=== PATIENT | male | born 1965 | race American Indian/Alaskan Native ===

== ENCOUNTER 2017-02-02 16:02 | Emergency (ER) | payer MEDICARE ==
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
[2017-02-02 16:26] LABS: BILIRUBIN URINE NEGATIVE (NEGATIVE); BLOOD URINE NEGATIVE /UL (NEGATIVE); COLOR URINE YELLOW (YELLOW); GLUCOSE URINE NEGATIVE (NEGATIVE); KETONE URINE NEGATIVE (NEGATIVE); LEUKOCYTES URINE NEGATIVE /UL (NEGATIVE); NITRITE URINE NEGATIVE (NEGATIVE); PROTEIN URINE 30 mg/dL (NEGATIVE); TURBIDITY URINE CLEAR (CLEAR); UROBILINOGEN URINE NORMAL (NORMAL)
[2017-02-02 16:35] LABS: BASOPHIL # 0.1 K/uL (0.0-0.2); BASOPHIL % 1.7 %; EOSINOPHIL # 0.2 K/uL (0.0-0.5); EOSINOPHIL % 2.7 %; HEMOGLOBIN 14.2 g/dL (12.0-17.0); IMMATURE GRANULOCYTE % 0.3 %; LYMPHOCYTE # 1.7 K/uL (0.8-4.0); LYMPHOCYTE % 29.4 %; MCH 33.6 pg (27.0-34.0); MCHC 33.8 gm/dL (32.0-36.5); MCV 99.3 fl (83.0-98.0); MONOCYTE # 0.5 K/uL (0.0-1.0); MONOCYTE % 9.1 %; MPV 8.7 fl (9.4-12.4); NEUTROPHIL # (ANC) 3.4 K/uL (1.4-9.0); NEUTROPHIL % 56.8 %; NRBC % 0 /100WBC (0-0.00); PLATELET COUNT 459 K/uL (150-450); RBC 4.23 M/uL (4.00-6.00); RDW-CV 13.9 % (11.9-14.6); WBC 5.9 K/uL (4.0-11.0)
[2017-02-02 16:44] LABS: EPITHELIAL URINE 0-2 #/HPF (NEGATIVE); RBC URINE 0-2 #/HPF (NEGATIVE); WBC URINE 0-2 #/HPF (NEGATIVE)
[2017-02-02 16:51] LABS: BARBITURATE NEGATIVE (NEGATIVE); COCAINE NEGATIVE (NEGATIVE); OPIATES NEGATIVE (NEGATIVE)
[2017-02-02 16:52] LABS: AMPHETAMINE NEGATIVE (NEGATIVE)
[2017-02-02 16:54] LABS: ALBUMIN 4.1 gm/dL (3.5-5.0); ALK PHOS 104 IU/L (33-138); ALT 23 IU/L (12-78); AST 18 IU/L (10-40); BLOOD UREA NITROGEN 11 mg/dL (6-24); CALCIUM 8.6 mg/dL (8.5-10.5); CHLORIDE 115 mMol/L (96-110); CO2 24 mMol/L (22-32); CREATININE 1.1 mg/dL (0.6-1.3); ESTIMATED GFR (MDRD EQUATION) > 60; POTASSIUM 4.9 mMol/L (3.7-5.1); TOTAL BILIRUBIN 0.4 mg/dL (0.0-1.5); TOTAL PROTEIN 7.5 g/dL (6.0-8.4)
[2017-02-02 16:57] LABS: AMORPHOUS URINE 2+ (NEGATIVE); BACTERIA URINE NEGATIVE (NEGATIVE)
[2017-02-02 17:01] LABS: ANION GAP 13.9 (10.0-19.0); SODIUM 148 mMol/L (135-145)
[2017-02-02] MEDS ORDERED: XANAX1 MG PO (21:44)
[2017-02-02] MEDS ORDERED: BUTRANS1 EAC3 TOP (21:46)
[2017-02-09] MEDS ORDERED: DEPAKOTE DELAY500 MG PO (12:11)
[2017-02-09] MEDS ORDERED: NEURONTIN400 MG PO (13:20)
[2017-02-09] MEDS ORDERED: [UNRECOGNIZED DRUG - OTHER] TOP (13:29)
[2017-02-09] MEDS ORDERED: PAXIL20 MG PO (13:31)
[2017-02-09] MEDS ORDERED: INDERAL10 MG PO (13:35)
[2017-02-09] MEDS ORDERED: SEROQUEL200 MG PO (13:40)
[2017-02-09] MEDS ORDERED: SEROQUEL100 MG PO (13:42)
== END 2017-02-02 17:58 | disposition disaster alternative care site (69) ==
LOC: GMED 16:02
PROVIDERS: Emergency Medicine
DX: F41.9 Anxiety disorder, unspecified (principal); F32.9 Major depressive disorder, single episode, unspecified; F17.200 Nicotine dependence, unspecified, uncomplicated; Z98.890 Other specified postprocedural states
CPT/HCPCS: G0480